=== PATIENT | female | born 1960 | race Caucasian/White ===

== ENCOUNTER 2022-09-06 12:41 | Emergency (ER) | payer OTHER ==
[2022-09-06] MEDS ORDERED: Sodium Chloride 0.9% 10 ML Syringe FLUSH PRN (12:42)
[2022-09-06] MEDS ORDERED: Sodium Chloride 0.9% 2.5 ML Syringe FLUSH PRN (12:42)
[2022-09-06] MEDS ORDERED: Alum Hydro/Mag Hydro/Simeth XS 15 ML, Lidocaine 2% 5 ML PO ONE ×2 (12:56)
[2022-09-06 13:21] LABS: BLOOD UREA NITROGEN,BUN 23 mg/dL (7.0-18.0); CARBON DIOXIDE,CO2 24.2 mmol/L (21.0-32.0); CHLORIDE,CL 99 mmol/L (98-107); GLUCOSE RANDOM 123 mg/dL (74-106); POTASSIUM,K 4.1 mmol/L (3.5-5.1); SODIUM,NA 136 mmol/L (136-145)
[2022-09-06 13:22] LABS: ESTIMATED GFR 47 mL/min (>60)
[2022-09-06] MEDS ORDERED: Pantoprazole 40 MG in Sodium Chloride 0.9% 10 ML IVPUSH ONE (14:36)
[2022-09-06] MEDS ORDERED: fentaNYL 50 MCG/ML SDV IVPUSH ONE (14:37)
[2022-09-06] MEDS ORDERED: Ondansetron 4 MG/2 ML SDV IVPUSH ONE (14:37)
[2022-09-06] MEDS ORDERED: Dicyclomine 10 MG Cap PO ONE (14:38)
[2022-09-06 16:01] LABS: LIPASE 82 U/L (73-393)
== END 2022-09-06 16:37 | disposition home or self-care (01) ==
LOC: MW.ED 12:41
DX: K22.70 Barrett's esophagus without dysplasia (principal); I10 Essential (primary) hypertension; Z79.899 Other long term (current) drug therapy
CPT/HCPCS: 36415; 71045; 80053; 83690; 83880; 84484; 85025; 85379; 93005; 96374; 96375; 99284; A9270; C9113; J2405; J3010; J3490